=== PATIENT | female | born 1995 | race Caucasian/White ===

== ENCOUNTER 2019-12-14 04:53 | Inpatient (IN) | payer BC, MEDICAID, OTHER ==
[~2019-12-14 04:53] MED LIST: Oxytocin/Lactated Ringers 10 UNIT/1,000 ML BAG IV SCH; Sodium Chloride 0.9% 10 ML Syringe FLUSH PRN
[2019-12-14] MEDS ORDERED: Citric Acid/Sodium Citrate Solution 30 ML Cup PO ONE (05:00)
[2019-12-14] MEDS ORDERED: Metoclopramide 10 MG/2 ML SDV IVPUSH ONE (05:00)
[2019-12-14] MEDS: Lactated Ringers 1,000 ML IV SCH ×2 (05:20→06:01)
[2019-12-14] MEDS ORDERED: Ondansetron 4 MG/2 ML SDV ONE (05:57)
[2019-12-14] MEDS ORDERED: Oxytocin 10 Units/1 ML SDV ONE (05:57)
[2019-12-14] MEDS ORDERED: Ketorolac 30 MG/ML SDV ONE (05:57)
[2019-12-14] MEDS ORDERED: Lactated Ringers 2,000 ML ONE (05:57)
[2019-12-14] MEDS ORDERED: ceFAZolin 1 GM Vial ONE (05:57)
[2019-12-14] MEDS ORDERED: CEFAZOLIN IV ONE (06:00)
[2019-12-14] MEDS ORDERED: Metoclopramide 10 MG/2 ML SDV ONE (06:06)
[2019-12-14] MEDS ORDERED: Citric Acid/Sodium Citrate Solution 30 ML Cup ONE (06:06)
[2019-12-14] MEDS ORDERED: Bupivacaine 0.5% 30 ML SDV ONE (06:09)
[2019-12-14] MEDS ORDERED: fentaNYL 100 MCG/2 ML SDV IVPUSH PRN (06:12)
[2019-12-14] MEDS ORDERED: HYDROmorphone 0.5 MG/0.5 ML Syringe IVPUSH PRN (06:12)
[2019-12-14] MEDS ORDERED: Ondansetron 4 MG/2 ML SDV IVPUSH PRN (06:12)
--- NOTE | 2019-12-14 06:13 | PCM.PREANE ---
Preanesthetic Assessment - Procedure Proposed Procedure: repeat csection - Anesthesia/Transfusion/Family Hx Anesthesia History: Prior Anesthesia Without Reaction Family History of Anesthesia Reaction: No Transfusion History: No Prior Transfusion(s) - Review of Systems General: No Symptoms Pulmonary: No Symptoms Cardiovascular: No Symptoms Gastrointestinal: No Symptoms Neurological: No Symptoms Other: Reports: Depression - Physical Assessment NPO Status Date: 12/13/19 NPO Status Time: 22:00 Vital Signs: Last Vital Signs Temp 98.0 F 12/14/19 01:06 Pulse 83 12/14/19 01:06 Resp 15 12/14/19 01:06 BP 130/86 12/14/19 01:06 Pulse Ox 99 12/14/19 01:06 Height: 5 ft 10 in Weight: 81.647 kg ASA Class: 2 Mental Status: Alert & Oriented x3 Airway Class: Mallampati = 1 Dentition: Reports: Normal Dentition Thyro-Mental Finger Breadths: 3 Mouth Opening Finger Breadths: 3 ROM/Head Extension: Full Lungs: Clear to Auscultation, Normal Respiratory Effort Cardiovascular: Regular Rate, Regular Rhythm - Lab Values: Laboratory Last Values WBC 8.45 K/mm3 (3.98-10.04) 12/14/19 05:15 RBC 4.21 M/mm3 (3.98-5.22) 12/14/19 05:15 Hgb 12.6 gm/dl (11.2-15.7) 12/14/19 05:15 Hct 39.4 % (34.1-44.9) 12/14/19 05:15 MCV 93.6 fl (79.4-94.8) 12/14/19 05:15 MCH 29.9 pg (25.6-32.2) 12/14/19 05:15 MCHC 32.0 g/dl (32.2-35.5) L 12/14/19 05:15 RDW Std Deviation 44.8 fL (36.4-46.3) 12/14/19 05:15 Plt Count 165 K/mm3 (182-369) L 12/14/19 05:15 MPV 12.4 fl (9.4-12.3) H 12/14/19 05:15 Neut % (Auto) 62.2 % (34.0-71.1) 12/14/19 05:15 Lymph % (Auto) 27.7 % (19.3-51.7) 12/14/19 05:15 [place] % (Auto) 8.0 % (4.7-12.5) 12/14/19 05:15 Eos % (Auto) 1.8 (0.7-5.8) 12/14/19 05:15 Baso % (Auto) 0.2 % (0.1-1.2) 12/14/19 05:15 Neut # (Auto) 5.25 K/mm3 (1.56-6.13) 12/14/19 05:15 Lymph # (Auto) 2.34 K/mm3 (1.18-3.74) 12/14/19 05:15 [place] # (Auto) 0.68 K/mm3 (0.24-0.36) H 12/14/19 05:15 Eos # (Auto) 0.15 K/mm3 (0.04-0.36) 12/14/19 05:15 Baso # (Auto) 0.02 K/mm3 (0.01-0.08) 12/14/19 05:15 - Allergies Allergies/Adverse Reactions: Allergies Allergy/AdvReac Type Severity Reaction Status Date / Time No Known Allergies Allergy Verified 12/14/19 01:05 - Blood Blood Available: No - Acknowledgements Anesthesia Type Planned: Spinal Pt an Appropriate Candidate for the Planned Anesthesia: Yes Alternatives and Risks of Anesthesia Discussed w Pt/Guardian: Yes Pt/Guardian Understands and Agrees with Anesthesia Plan: Yes PreAnesthesia Questionnaire - Past Health History Medical/Surgical History: Denies Medical/Surgical History HEENT History: Reports: None Cardiovascular History: Reports: None Respiratory History: Reports: None Gastrointestinal History: Reports: None Genitourinary History: Reports: Pyelonephritis [employer] History: Reports: , Spontaneous : 2 Para: 1 Other OB/BYN History: SAB x 3, C/S in 2016 Musculoskeletal History: Reports: None Neurological History: Reports: Headaches, Chronic (resolved) Psychiatric History: Reports: ADHD, Anxiety, Depression Endocrine/Metabolic History: Reports: None Hematologic History: Reports: None Immunologic History: Reports: None Oncologic (Cancer) History: Reports: None Dermatologic History: Reports: None - Infectious Disease History Infectious Disease History: Reports: MRSA Other Infectious Disease History: MRSA cleared 05/15/[address] Lopez at [facility]- see scanned prenatals - Past Surgical History HEENT Surgical History: Reports: Adenoidectomy, Tonsillectomy Female Surgical History: Reports: Section Other Female Surgeries/Procedures: C/S in 2016 - SUBSTANCE USE Tobacco Use Status *Q: Never Tobacco User Tobacco Use Within Last Twelve Months: No Second Hand Smoke Exposure: No Days Per Week of Alcohol Use: 0 Recreational Drug Use History: No - HOME MEDS Home Medications: Home Meds Pnv No.95/Ferrous Fum/Folic AC [ Tablet] 1 tab PO DAILY 12/13/19 [History] - CURRENT (IN HOUSE) MEDS Current Meds: Current Medications Oxytocin/Lactated Ringer's (Pitocin In Lr 10 Units/1,000 Ml) 10 unit in 1,000 mls @ 100 mls/hr IV ASDIRECTED [facility]; Protocol Lactated Ringer's (Ringers, Lactated) 1,000 mls @ 125 mls/hr IV ASDIRECTED [facility] Last Admin: 12/14/19 06:01 Dose: 900 mls/hr Documented by: Sodium Chloride (Saline Flush) 10 ml FLUSH ASDIRECTED PRN PRN Reason: Keep Vein Open Discontinued Medications Cefazolin Sodium (Ancef) Confirm Administered Dose 2 gm .ROUTE .STK-MED ONE Stop: 12/14/19 05:58 Citric Acid/Sodium Citrate (Bicitra Solution) 30 ml PO ONETIME ONE Stop: 12/14/19 05:01 Cefazolin Sodium/Dextrose 2 gm (/ Premix) 0 mls @ 100 mls/hr IV ONETIME ONE Stop: 12/14/19 06:01 Lactated Ringer's (Ringers, Lactated) Confirm Administered Dose 2,000 mls @ as directed .ROUTE .STK-MED ONE Stop: 12/14/19 05:58 Ketorolac Tromethamine (Toradol) Confirm Administered Dose 30 mg .ROUTE .STK-MED ONE Stop: 12/14/19 05:58 Metoclopramide HCl (Reglan) 10 mg IVPUSH ONETIME ONE Stop: 12/14/19 05:01 Ondansetron HCl (Zofran) Confirm Administered Dose 4 mg .ROUTE .STK-MED ONE Stop: 12/14/19 05:58 Oxytocin (Pitocin) Confirm Administered Dose 10 unit .ROUTE .[facility]-MED ONE Stop: 12/14/19 05:58
[2019-12-14] MEDS ORDERED: Morphine PF 10 MG/10 ML SDV ONE (06:17)
[2019-12-14] MEDS ORDERED: ePHEDrine 50 MG/ML SDV ONE (07:23)
--- NOTE | 2019-12-14 07:37 | PCM.POSTAN ---
POST ANESTHESIA ASSESSMENT - MENTAL STATUS Mental Status: Alert, Oriented - VITAL SIGNS Vital Signs: Last Vital Signs Temp 98.0 F 12/14/19 01:06 Pulse 83 12/14/19 01:06 Resp 15 12/14/19 01:06 BP 130/86 12/14/19 01:06 Pulse Ox 99 12/14/19 01:06 0730 96/62 95 16 97.2 98% - RESPIRATORY Respiratory Status: Respiratory Rate WNL, Airway Patent, O2 Saturation Stable, Supplemental Oxygen - CARDIOVASCULAR CV Status: Pulse Rate WNL, Blood Pressure Stable - GASTROINTESTINAL GI Status: No Symptoms - PAIN Pain Score: 0 - POST OP HYDRATION Hydration Status: Adequate & Stable
--- NOTE | 2019-12-14 07:57 | PCM.OPNOTE ---
- General Post-Op/Procedure Note Date of Surgery/Procedure: 12/14/19 Operative Procedure(s): repeat Findings: viable female at 0704, 9/9 apgars, 7#13oz, vertex. Pre Op Diagnosis: prior , desires repeat Post-Op Diagnosis: Same Anesthesia Technique: Spinal Primary Surgeon: Shirley Lopez Anesthesia Provider: Talat Amaya Ccna: Augusto Mast Ccna: Anamika Gatica Reason Ccna Was Necessary: retraction, repeat, patient safety Fluid Replacement, Intraop: 3,100 Output, Urine Amount: 400 EBL in mLs: 600 Complications: None Condition: Good Free Text/Narrative:: The patient was taken to the operating room where epidural anesthesia was dosed to surgical levels without difficulty. The patient was prepped and draped in the usual sterile fashion in the dorsal supine position with a leftward tilt. A Pfannenstiel skin incision was made with the scalpel and carried through to the underlying layer of fascia. The fascia was incised in the midline and extended laterally using Vasques scissors. Good clamps were used to elevate the superior aspect of the fascial incision, which was elevated, and the underlying rectus muscles were dissected off bluntly and using Vasques scissors. Attention was then turned to the inferior aspect of the fascial incision, which in similar fashion was grasped with Good clamps, elevated, and the underlying rectus muscles were dissected off bluntly and using the vasques. The rectus muscles were dissected in the midline. The peritoneum was entered bluntly; this incision was extended superiorly and inferiorly with good visualization of the bladder. The bladder blade was inserted. The vesicouterine peritoneum was identified and entered sharply using Metzenbaum scissors. This incision was extended laterally and the bladder flap was created digitally. The bladder blade was reinserted. The lower uterine segment was incised in a transverse fashion using the scalpel and with digital traction. Clear fluid was noted. The was subsequently delivered by flexing the head to the incision, vacuum assistance required. . Body and shoulders followed without difficulty. The cord was clamped and cut. The was subsequently handed to the awaiting lens polisher whose presence had been requested.. The placenta was delivered spontaneously intact with a three-vessel cord noted. The uterus was exteriorized and cleared of all clots and debris. The uterine incision was repaired in 2 layers using 0 monocryl. Hemostasis was visualized. Hemostasis was visualized bilaterally. The uterus was returned to the abdomen. The uterine incision was reexamined and it was noted to be hemostatic. The pelvis was copiously irrigated. The fascia was closed with 1 PDS suture, and the skin was closed with 3-0 monocryl. Sponge, lap, and instrument counts were correct x2. The patient was stable at the completion of the procedure and was subsequently transferred to the recovery room in stable condition.Intake & Output 12/13/19 12/14/19 12/14/19 22:59 06:59 14:59 Intake Total 1000 Output Total 400 Balance 1000 -400
[2019-12-14] MEDS ORDERED: ePHEDrine 50 MG/ML SDV IVPUSH PRN (09:01)
[2019-12-14] MEDS ORDERED: Naloxone 0.4 MG/ML SDV IVPUSH PRN (09:01)
[2019-12-14] MEDS ORDERED: Acetaminophen/oxyCODONE 325-5 MG Tab PO PRN (09:01)
[2019-12-14] MEDS ORDERED: Dextrose 5%-Lactated Ringers 1,000 ML IV SCH (09:01)
[2019-12-14] MEDS ORDERED: diphenhydrAMINE 50 MG/ML SDV IVPUSH PRN (09:01)
[2019-12-14] MEDS: Ondansetron 4 MG/2 ML SDV IVPUSH PRN ×2 (10:09→19:35)
[2019-12-14] MEDS: Ketorolac 30 MG/ML SDV IVPUSH SCH ×2 (13:23→20:22)
[2019-12-14] MEDS ORDERED: Dextrose 5%-Lactated Ringers 1,000 ML IV ONE (14:00)
[2019-12-14] MEDS ORDERED: Lactated Ringers 1,000 ML IV SCH (17:30)
[2019-12-15] MEDS ORDERED: Ketorolac 30 MG/ML SDV IVPUSH ONE (05:00)
--- NOTE | 2019-12-15 07:43 | PCM48HPAN ---
Post Anesthesia Note - EVALUATION WITHIN 48HRS OF ANESTHETIC Vital Signs in Normal Range: Yes Patient Participated in Evaluation: Yes Respiratory Function Stable: Yes Airway Patent: Yes Cardiovascular Function Stable: Yes Hydration Status Stable: Yes Pain Control Satisfactory: Yes Nausea and Vomiting Control Satisfactory: Yes Mental Status Recovered: Yes Vital Signs: Last Vital Signs Temp 36.6 C 12/15/19 03:21 Pulse 79 12/15/19 03:21 Resp 16 12/15/19 03:21 BP 117/57 L 12/15/19 03:21 Pulse Ox 96 12/15/19 03:21
--- NOTE | 2019-12-15 08:38 | PCM.PNPP ---
- General Info Date of Service: 12/15/19 Functional Status: Reports: Pain Controlled - Review of Systems General: Reports: No Symptoms HEENT: Reports: No Symptoms Pulmonary: Reports: No Symptoms Cardiovascular: Reports: No Symptoms Gastrointestinal: Reports: No Symptoms Genitourinary: Reports: No Symptoms Musculoskeletal: Reports: No Symptoms Skin: Reports: No Symptoms Neurological: Reports: No Symptoms Psychiatric: Reports: No Symptoms - General Info Date of Service: 12/15/19 - Patient Data Vital Signs - Most Recent: Last Vital Signs Temp 36.6 C 12/15/19 03:21 Pulse 79 12/15/19 03:21 Resp 16 12/15/19 03:21 BP 117/57 L 12/15/19 03:21 Pulse Ox 96 12/15/19 03:21 Weight - Most Recent: 81.647 kg I&O - Last 24 Hours: Intake & Output 12/14/19 12/15/19 12/15/19 22:59 06:59 14:59 Intake Total 30 1000 Output Total 215 800 Balance -185 200 Lab Results - Last 24 Hours: Laboratory Results - last 24 hr 12/14/19 12/14/19 12/15/19 Range/Units 05:15 05:15 06:10 WBC 6.38 (3.98-10.04) K/mm3 RBC 3.44 L (3.98-5.22) M/mm3 Hgb 10.3 L D (11.2-15.7) gm/dl Hct 32.8 L (34.1-44.9) % MCV 95.3 H (79.4-94.8) fl MCH 29.9 (25.6-32.2) pg MCHC 31.4 L (32.2-35.5) g/dl RDW Std Deviation 44.2 (36.4-46.3) fL Plt Count 113 L (182-369) K/mm3 MPV 12.1 (9.4-12.3) fl Neut % (Auto) 70.6 (34.0-71.1) % Lymph % (Auto) 20.2 (19.3-51.7) % [place] % (Auto) 7.1 (4.7-12.5) % Eos % (Auto) 1.6 (0.7-5.8) Baso % (Auto) 0.3 (0.1-1.2) % Neut # (Auto) 4.51 (1.56-6.13) K/mm3 Lymph # (Auto) 1.29 (1.18-3.74) K/mm3 [place] # (Auto) 0.45 H (0.24-0.36) K/mm3 Eos # (Auto) 0.10 (0.04-0.36) K/mm3 Baso # (Auto) 0.02 (0.01-0.08) K/mm3 RPR Non-reactive (NONREACTIVE) Blood Type A POSITIVE Gel Antibody Screen Negative Med Orders - Current: Current Medications Diphenhydramine HCl (Benadryl) 25 mg IVPUSH Q6H PRN PRN Reason: Itching or Nausea Ephedrine Sulfate (Ephedrine Sulfate) 5 mg IVPUSH SEECOMMENT PRN PRN Reason: Other Lactated Ringer's (Ringers, Lactated) 1,000 mls @ 125 mls/hr IV ASDIRECTED [facility] Last Admin: 12/14/19 18:47 Dose: 125 mls/hr Documented by: Ibuprofen (Motrin) 600 mg PO Q6H PRN PRN Reason: mild pain or fever Naloxone HCl (Narcan) 0.1 mg IVPUSH SEECOMMENT PRN PRN Reason: Respiratory Depression Ondansetron HCl (Zofran) 4 mg IVPUSH Q8H PRN PRN Reason: Nausea Last Admin: 12/14/19 19:35 Dose: 4 mg Documented by: Oxycodone/Acetaminophen (Percocet 325-5 Mg) 1 tab PO Q4H PRN PRN Reason: Pain (moderate 4-6) Oxycodone/Acetaminophen (Percocet 325-5 Mg) 2 tab PO Q4H PRN PRN Reason: Pain (severe 7-10) Discontinued Medications Bupivacaine HCl (Marcaine 0.5%) Confirm Administered Dose 30 ml .ROUTE .STK-MED ONE Stop: 12/14/19 06:10 Last Admin: 12/14/19 06:59 Dose: 20 ml Documented by: Cefazolin Sodium (Ancef) Confirm Administered Dose 2 gm .ROUTE .STK-MED ONE Stop: 12/14/19 05:58 Citric Acid/Sodium Citrate (Bicitra Solution) 30 ml PO ONETIME ONE Stop: 12/14/19 05:01 Last Admin: 12/14/19 06:17 Dose: 30 ml Documented by: Citric Acid/Sodium Citrate (Bicitra Solution) Confirm Administered Dose 30 ml .ROUTE .STK-MED ONE Stop: 12/14/19 06:07 Last Admin: 12/14/19 06:18 Dose: Not Given Documented by: Ephedrine Sulfate (Ephedrine Sulfate) Confirm Administered Dose 50 mg .ROUTE .STK-MED ONE Stop: 12/14/19 07:24 Fentanyl (Sublimaze) 50 mcg IVPUSH Q5M PRN PRN Reason: Pain Hydromorphone HCl (Dilaudid) 0.5 mg IVPUSH Q10M PRN PRN Reason: Pain (severe 7-10) Cefazolin Sodium/Dextrose 2 gm (/ Premix) 0 mls @ 100 mls/hr IV ONETIME ONE Stop: 12/14/19 06:01 Oxytocin/Lactated Ringer's (Pitocin In Lr 10 Units/1,000 Ml) 10 unit in 1,000 mls @ 100 mls/hr IV ASDIRECTED [facility]; Protocol Lactated Ringer's (Ringers, Lactated) 1,000 mls @ 125 mls/hr IV ASDIRECTED [facility] Last Admin: 12/14/19 06:01 Dose: 900 mls/hr Documented by: Lactated Ringer's (Ringers, Lactated) Confirm Administered Dose 2,000 mls @ as directed .ROUTE .STK-MED ONE Stop: 12/14/19 05:58 Dextrose/Lactated Ringer's (Dextrose 5%-Lactated Ringers) 1,000 mls @ 125 mls/hr IV ASDIRECTED [facility] Stop: 12/14/19 17:00 Last Admin: 12/14/19 09:30 Dose: 125 mls/hr Documented by: Dextrose/Lactated Ringer's (Dextrose 5%-Lactated Ringers) 1,000 mls @ 999 mls/hr IV ONETIME ONE Stop: 12/14/19 15:00 Last Admin: 12/14/19 13:56 Dose: 999 mls/hr Documented by: Ketorolac Tromethamine (Toradol) Confirm Administered Dose 30 mg .ROUTE .STK-MED ONE Stop: 12/14/19 05:58 Ketorolac Tromethamine (Toradol) 30 mg IVPUSH Q6H [facility] Stop: 12/15/19 00:31 Last Admin: 12/14/19 20:22 Dose: 30 mg Documented by: Ketorolac Tromethamine (Toradol) 30 mg IVPUSH ONETIME ONE Stop: 12/15/19 05:01 Last Admin: 12/15/19 04:52 Dose: 30 mg Documented by: Metoclopramide HCl (Reglan) 10 mg IVPUSH ONETIME ONE Stop: 12/14/19 05:01 Last Admin: 12/14/19 06:17 Dose: 10 mg Documented by: Metoclopramide HCl (Reglan) Confirm Administered Dose 10 mg .ROUTE .STK-MED ONE Stop: 12/14/19 06:07 Last Admin: 12/14/19 06:18 Dose: Not Given Documented by: Miscellaneous Medication (Phenylephrine 1 Mg/10 Ml-Ns) Confirm Administered Dose 1 mg .ROUTE .STK-MED ONE Stop: 12/14/19 07:24 Morphine Sulfate (Duramorph Pf) Confirm Administered Dose 10 mg .ROUTE .STK-MED ONE Stop: 12/14/19 06:18 Ondansetron HCl (Zofran) Confirm Administered Dose 4 mg .ROUTE .STK-MED ONE Stop: 12/14/19 05:58 Ondansetron HCl (Zofran) 4 mg IVPUSH ONETIME PRN PRN Reason: Nausea/Vomiting Oxytocin (Pitocin) Confirm Administered Dose 10 unit .ROUTE .STK-MED ONE Stop: 12/14/19 05:58 Sodium Chloride (Saline Flush) 10 ml FLUSH ASDIRECTED PRN PRN Reason: Keep Vein Open - Infant Interaction Support Person: - Recovery Exam Fundal Tone: Firm Fundal Level: 1 Fingerbreadths Below Umbilicus Fundal Placement: Midline Lochia Amount: Small Lochia Color: Rubra/Red Perineum Description: Intact, Minimal Bruising/Swelling Episiotomy/Laceration: None Bladder Status: Indwelling Catheter in Place Urinary Elimination: Indwelling Catheter - Exam General: Alert, Oriented HEENT: Pupils Equal Neck: Supple Lungs: Clear to Auscultation, Normal Respiratory Effort Cardiovascular: Regular Rate, Regular Rhythm GI/Abdominal Exam: Normal Bowel Sounds, Soft, Non-Tender, No Organomegaly, No Distention, No Abnormal Bruit, No Mass, Pelvis Stable Extremities: Normal Inspection, Normal Range of Motion, Non-Tender, No Pedal Edema, Normal Capillary Refill Neurological: No New Focal Deficit - Problem List Review Problem List Initiated/Reviewed/Updated: Yes - My Orders Last 24 Hours: My Active Orders 12/14/19 09:01 Acetaminophen/oxyCODONE [Percocet 325-5 MG] 1 tab PO Q4H PRN Acetaminophen/oxyCODONE [Percocet 325-5 MG] 2 tab PO Q4H PRN Naloxone [Narcan] 0.1 mg IVPUSH SEECOMMENT PRN diphenhydrAMINE [Benadryl] 25 mg IVPUSH Q6H PRN ePHEDrine [ePHEDrine sulfate] 5 mg IVPUSH SEECOMMENT PRN 12/14/19 09:01 Communication Order [RC] PER UNIT ROUTINE Communication Order [RC] PER UNIT ROUTINE Communication Order [RC] PER UNIT ROUTINE Notify Provider Intake and Out [RC] ASDIRECTED Vital Signs [RC] Q4H Assess Lochia [WOMSER] Per Unit Routine Assess Uterine Involution [WOMSER] Per Unit Routine Medication Administration Instruction [OM.PC] Routine 12/14/19 09:10 Ondansetron [Zofran] 4 mg IVPUSH Q8H PRN 12/14/19 Lunch Regular Diet [DIET] 12/14/19 17:30 Lactated Ringers [Ringers, Lactated] 1,000 ml IV ASDIRECTED 12/15/19 06:30 Ibuprofen [Motrin] 600 mg PO Q6H PRN 12/15/19 07:57 Urinary Catheter Removal [RC] Per Unit Routine - Assessment Assessment:: POD1 Doing great. No issues. Desires discharge home.
[2019-12-15] MEDS: Acetaminophen/oxyCODONE 325-5 MG Tab PO PRN ×2 (10:45→20:07)
[2019-12-15] MEDS: Ibuprofen 600 MG Tab PO PRN (13:39)
[2019-12-15] MEDS: Ketorolac 30 MG/ML SDV IVPUSH SCH (18:37)
[2019-12-16] MEDS: Ibuprofen 600 MG Tab PO PRN (05:21)
--- NOTE | 2019-12-16 09:58 | PCM.SN.2 ---
- Free Text/Narrative Note: Post Operative Progress Note POD #2 Subjective: Doing well overall. Ambulating with some difficulty with burning at the incision when she is up and walking for longer periods of time. Reports that it is getting better since yesterday and the day of surgery. Lochia minimal. Voiding without difficulty. Passing flatus and has not had a bowel movement at this time. Tolerating regular diet without nausea or vomiting. Pain controlled with oral medications. Breast and bottlefeeding with minimal difficulty. Objective: Vitals: Vital Signs - 24 hr 12/15/19 12/15/19 12/16/19 15:00 20:06 02:50 Temperature 36.1 C 36.9 C Temperature [ 36.5 C Temporal] Pulse, 81 59 L Peripheral Pulse, 71 Peripheral [ Pulse Oximetry] Respiratory 14 16 16 Rate Blood Pressure 126/73 115/70 Blood Pressure 123/81 [Left Upper Arm ] O2 Sat by Pulse 97 100 97 Oximetry Physical Exam General: Alert and oriented, no acute distress Lungs: Clear to auscultation bilaterally Heart: Regular rate and rhythm Abdomen: Soft, minimal appropriate tenderness, non-distended, fundus midline, nontender and at the umbilicus Incision: Clean, dry and intact, no erythema, bleeding or drainage with skin glue in place Extremities: No edema ASSESSMENT: 24-year-old female -0-3-2 s/p repeat section POD #2 for history of section, complicated by history of section PLAN: Doing well Breast and bottlefeeding with minimal difficulty. Assist as needed Incision healing well. Continue to keep clean and dry. Lochia minimal. Continue to monitor for appropriate lochia. Continue routine post-operative care Discharge home today Augusto Mast MD 9:58 AM 12/16/2019
--- NOTE | 2019-12-16 10:06 | PCM.DCSUM1 ---
Discharge Summary - Hospital Course Free Text/Narrative:: - General Post-Op/Procedure Note Date of Surgery/Procedure: 12/14/19 Operative Procedure(s): repeat Findings: viable female at 0704, 9/9 apgars, 7#13oz, vertex. Pre Op Diagnosis: prior , desires repeat Post-Op Diagnosis: Same Anesthesia Technique: Spinal Primary Surgeon: Shirley Lopez Anesthesia Provider: Talat [employer] Security Consultant: Augusto Mast [employer] Security Consultant: Anamika Gatica [employer] Security Consultant Was Necessary: retraction, repeat, patient safety Fluid Replacement, Intraop: 3,100 Output, Urine Amount: 400 EBL in mLs: 600 Complications: None Condition: Good Free Text/Narrative:: The patient was taken to the operating room where epidural anesthesia was dosed to surgical levels without difficulty. The patient was prepped and draped in the usual sterile fashion in the dorsal supine position with a leftward tilt. A Pfannenstiel skin incision was made with the scalpel and carried through to the underlying layer of fascia. The fascia was incised in the midline and extended laterally using Vasques scissors. Good clamps were used to elevate the superior aspect of the fascial incision, which was elevated, and the underlying rectus muscles were dissected off bluntly and using Vasques scissors. Attention was then turned to the inferior aspect of the fascial incision, which in similar fashion was grasped with Good clamps, elevated, and the underlying rectus muscles were dissected off bluntly and using the vasques. The rectus muscles were dissected in the midline. The peritoneum was entered bluntly; this incision was extended superiorly and inferiorly with good visualization of the bladder. The bladder blade was inserted. The vesicouterine peritoneum was identified and entered sharply using Metzenbaum scissors. This incision was extended laterally and the bladder flap was created digitally. The bladder blade was reinserted. The lower uterine segment was incised in a transverse fashion using the scalpel and with digital traction. Clear fluid was noted. The infant was subsequently delivered by flexing the head to the incision, vacuum assistance required. . Body and shoulders f HPI Initial Comments: - General Post-Op/Procedure Note Date of Surgery/Procedure: 12/14/19 Operative Procedure(s): repeat Findings: viable female at 0704, 9/9 apgars, 7#13oz, vertex. Pre Op Diagnosis: prior , desires repeat Post-Op Diagnosis: Same Anesthesia Technique: Spinal Primary Surgeon: Shirley Lopez Anesthesia Provider: [employer] Security Consultant: Augusto Mast [employer] Security Consultant: Anamika Gatica [employer] Security Consultant Was Necessary: retraction, repeat, patient safety Fluid Replacement, Intraop: 3,100 Output, Urine Amount: 400 EBL in mLs: 600 Complications: None Condition: Good Free Text/Narrative:: The patient was taken to the operating room where epidural anesthesia was dosed to surgical levels without difficulty. The patient was prepped and draped in the usual sterile fashion in the dorsal supine position with a leftward tilt. A Pfannenstiel skin incision was made with the scalpel and carried through to the underlying layer of fascia. The fascia was incised in the midline and extended laterally using Vasques scissors. Good clamps were used to elevate the superior aspect of the fascial incision, which was elevated, and the underlying rectus muscles were dissected off bluntly and using Vasques scissors. Attention was then turned to the inferior aspect of the fascial incision, which in similar fashion was grasped with Good clamps, elevated, and the underlying rectus muscles were dissected off bluntly and using the vasques. The rectus muscles were dissected in the midline. The peritoneum was entered bluntly; this incision was extended superiorly and inferiorly with good visualization of the bladder. The bladder blade was inserted. The vesicouterine peritoneum was identified and entered sharply using Metzenbaum scissors. This incision was extended laterally and the bladder flap was created digitally. The bladder blade was reinserted. The lower uterine segment was incised in a transverse fashion using the scalpel and with digital traction. Clear fluid was noted. The was subsequently delivered by flexing the head to the incision, vacuum assistance required. . Body and shoulders f Brief History: - General Post-Op/Procedure Note. Date of Surgery/Procedure: 12/14/19. Operative Procedure(s): repeat . Findings: viable female at 0704, 9/9 apgars, 7#13oz, vertex. Pre Op Diagnosis: prior , desires repeat. Post-Op Diagnosis: Same. Anesthesia Technique: Spinal. Primary Surgeon: Shirley Lopez. Anesthesia Provider: Talat Amaya. Systems Security Consultant: Augusto Mast [employer] Security Consultant: Anamika Gatica. Reason Systems Security Consultant Was Necessary: retraction, repeat, patient safety. Fluid Replacement, Intraop: 3 ,100. Output, Urine Amount: 400. EBL in mLs: 600. Complications: None. Condition: Good. Free Text/Narrative:: The patient was taken to the operating room where epidural anesthesia was dosed to surgical levels without difficulty. The patient was prepped and draped in the usual sterile fashion in the dorsal supine position with a leftward tilt. A Pfannenstiel skin incision was made with the scalpel and carried through to the underlying layer of fascia. The fascia was incised in the midline and extended laterally using Vasques scissors. Good clamps were used to elevate the superior aspect of the fascial incision, which was elevated, and the underlying rectus muscles were dissected off bluntly and using Vasques scissors. Attention was then turned to the inferior aspect of the fascial incision, which in similar fashion was grasped with Good clamps, elevated, and the underlying rectus muscles were dissected off bluntly and using the vasques. The rectus muscles were dissected in the midline. The peritoneum was entered bluntly; this incision was extended superiorly and inferiorly with good visualization of the bladder. The bladder blade was inserted. The vesicouterine peritoneum was identified and entered sharply using Metzenbaum scissors. This incision was extended laterally and the bladder flap was created digitally. The bladder blade was reinserted. The lower uterine segment was incised in a transverse fashion using the scalpel and with digital traction. Clear fluid was noted. The was subsequently delivered by flexing the head to the incision, vacuum assistance required. . Body and shoulders f Diagnosis: Stroke: No - Discharge Data Discharge Date: 12/16/19 Discharge Disposition: Home, Self-Care 01 Condition: Good - Referral to Home Health Primary Care Physician: Shirley Lopez MD - Patient Summary/Data Operative Procedure(s) Performed: repeat Complications: None Consults: None Hospital Course: Anju Hagen was admitted for scheduled repeat section. She was taken back to the OR and given spinal injection for anesthesia. She was given Ancef 2 g IV for antibiotic prophylaxis. She was prepped and draped in the normal fashion. On 12/14/2019 she had a vacuum-assisted delivery of a live female infant at 07:04. Apgars of 9 and 9. Weight of 3540 g (7 pounds 12.9 ounces). She was closed in a normal fashion. There were no complications with the procedure. Please see the operative report for full details. Her post operative course was uneventful. Her pain was well controlled and she had minimal lochia. She was ambulating, tolerating a regular diet and voiding normally. She was passing flatus and has not had a bowel movement. She was breast and bottle feeding without difficulty. She was afebrile and her hematocrit was 32.8 on POD #1. She desired to be discharged home on the morning of POD #2. Her blood type is A+. - Patient Instructions Diet: Regular Diet as Tolerated Activity: Apply Ice, As Tolerated, No Lifting Over 20 Pounds Activity, Other: Nothing in the vagina for 6 weeks Driving: Do Not Drive (While taking narcotic medications or having significant pain) Showering/Bathing: May Shower Wound/Incision Care: Keep Operative Site/Wound Site Clean and Dry Notify Provider of: Fever, Increased Pain, Swelling and Redness, Drainage, Nausea and/or Vomiting Other/Special Instructions: Please contact your physician's office if you note any bleeding or pus coming from the abdominal incision. Please contact your physician's office if you have heavy vaginal bleeding enough to soak a pad in less than an hour for several hours. Monitor for any signs of an infection in the breasts with severe pain or redness of the breast. - Discharge Plan *PRESCRIPTION DRUG MONITORING PROGRAM REVIEWED*: No *COPY OF PRESCRIPTION DRUG MONITORING REPORT IN PATIENT TERESA: No Home Medications: Home Meds Pnv No.95/Ferrous Fum/Folic AC [ Tablet] 1 tab PO DAILY 12/13/19 [History] Acetaminophen/oxyCODONE [Percocet 325-5 MG] 2 tab PO Q4H PRN tablet 12/16/19 [Rx] Ibuprofen [Motrin] 600 mg PO Q6H PRN tablet 12/16/19 [Rx] Patient Handouts: Care After Delivery Referrals: Shirley Lopez MD [Primary Care Provider] - (Follow-up in 2 weeks for routine postoperative appointment or earlier as needed.) - Discharge Summary/Plan Comment DC Time >30 min.: No - Patient Data Vitals - Most Recent: Last Vital Signs Temp 36.9 C 12/16/19 02:50 Pulse 59 L 12/16/19 02:50 Resp 16 12/16/19 02:50 BP 115/70 12/16/19 02:50 Pulse Ox 97 12/16/19 02:50 Weight - Most Recent: 81.647 kg I&O - Last 24 hours: Intake & Output 12/15/19 12/16/19 12/16/19 22:59 06:59 14:59 Intake Total 500 Balance 500 Med Orders - Current: Current Medications Diphenhydramine HCl (Benadryl) 25 mg IVPUSH Q6H PRN PRN Reason: Itching or Nausea Ephedrine Sulfate (Ephedrine Sulfate) 5 mg IVPUSH SEECOMMENT PRN PRN Reason: Other Lactated Ringer's (Ringers, Lactated) 1,000 mls @ 125 mls/hr IV ASDIRECTED TARIK Last Admin: 12/14/19 18:47 Dose: 125 mls/hr Documented by: Ibuprofen (Motrin) 600 mg PO Q6H PRN PRN Reason: mild pain or fever Last Admin: 12/16/19 05:21 Dose: 600 mg Documented by: Naloxone HCl (Narcan) 0.1 mg IVPUSH SEECOMMENT PRN PRN Reason: Respiratory Depression Ondansetron HCl (Zofran) 4 mg IVPUSH Q8H PRN PRN Reason: Nausea Last Admin: 12/14/19 19:35 Dose: 4 mg Documented by: Oxycodone/Acetaminophen (Percocet 325-5 Mg) 1 tab PO Q4H PRN PRN Reason: Pain (moderate 4-6) Last Admin: 12/15/19 20:07 Dose: 1 tab Documented by: Oxycodone/Acetaminophen (Percocet 325-5 Mg) 2 tab PO Q4H PRN PRN Reason: Pain (severe 7-10) Discontinued Medications Bupivacaine HCl (Marcaine 0.5%) Confirm Administered Dose 30 ml .ROUTE .STK-MED ONE Stop: 12/14/19 06:10 Last Admin: 12/14/19 06:59 Dose: 20 ml Documented by: Cefazolin Sodium (Ancef) Confirm Administered Dose 2 gm .ROUTE .STK-MED ONE Stop: 12/14/19 05:58 Citric Acid/Sodium Citrate (Bicitra Solution) 30 ml PO ONETIME ONE Stop: 12/14/19 05:01 Last Admin: 12/14/19 06:17 Dose: 30 ml Documented by: Citric Acid/Sodium Citrate (Bicitra Solution) Confirm Administered Dose 30 ml .ROUTE .STK-MED ONE Stop: 12/14/19 06:07 Last Admin: 12/14/19 06:18 Dose: Not Given Documented by: Ephedrine Sulfate (Ephedrine Sulfate) Confirm Administered Dose 50 mg .ROUTE .STK-MED ONE Stop: 12/14/19 07:24 Fentanyl (Sublimaze) 50 mcg IVPUSH Q5M PRN PRN Reason: Pain Hydromorphone HCl (Dilaudid) 0.5 mg IVPUSH Q10M PRN PRN Reason: Pain (severe 7-10) Cefazolin Sodium/Dextrose 2 gm (/ Premix) 0 mls @ 100 mls/hr IV ONETIME ONE Stop: 12/14/19 06:01 Last Admin: 12/15/19 18:39 Dose: Not Given Documented by: Oxytocin/Lactated Ringer's (Pitocin In Lr 10 Units/1,000 Ml) 10 unit in 1,000 m ls @ 100 mls/hr IV ASDIRECTED [facility]; Protocol Lactated Ringer's (Ringers, Lactated) 1,000 mls @ 125 mls/hr IV ASDIRECTED [facility] Last Admin: 12/14/19 06:01 Dose: 900 mls/hr Documented by: Lactated Ringer's (Ringers, Lactated) Confirm Administered Dose 2,000 mls @ as directed .ROUTE .STK-MED ONE Stop: 12/14/19 05:58 Dextrose/Lactated Ringer's (Dextrose 5%-Lactated Ringers) 1,000 mls @ 125 mls/hr IV ASDIRECTED [facility] Stop: 12/14/19 17:00 Last Admin: 12/14/19 09:30 Dose: 125 mls/hr Documented by: Dextrose/Lactated Ringer's (Dextrose 5%-Lactated Ringers) 1,000 mls @ 999 mls/hr IV ONETIME ONE Stop: 12/14/19 15:00 Last Admin: 12/14/19 13:56 Dose: 999 mls/hr Documented by: Ketorolac Tromethamine (Toradol) Confirm Administered Dose 30 mg .ROUTE .STK-MED ONE Stop: 12/14/19 05:58 Ketorolac Tromethamine (Toradol) 30 mg IVPUSH Q6H TARIK Stop: 12/15/19 00:31 Last Admin: 12/15/19 18:37 Dose: Not Given Documented by: Ketorolac Tromethamine (Toradol) 30 mg IVPUSH ONETIME ONE Stop: 12/15/19 05:01 Last Admin: 12/15/19 04:52 Dose: 30 mg Documented by: Metoclopramide HCl (Reglan) 10 mg IVPUSH ONETIME ONE Stop: 12/14/19 05:01 Last Admin: 12/14/19 06:17 Dose: 10 mg Documented by: Metoclopramide HCl (Reglan) Confirm Administered Dose 10 mg .ROUTE .STK-MED ONE Stop: 12/14/19 06:07 Last Admin: 12/14/19 06:18 Dose: Not Given Documented by: Miscellaneous Medication (Phenylephrine 1 Mg/10 Ml-Ns) Confirm Administered Dose 1 mg .ROUTE .STK-MED ONE Stop: 12/14/19 07:24 Morphine Sulfate (Duramorph Pf) Confirm Administered Dose 10 mg .ROUTE .STK-MED ONE Stop: 12/14/19 06:18 Ondansetron HCl (Zofran) Confirm Administered Dose 4 mg .ROUTE .STK-MED ONE Stop: 12/14/19 05:58 Ondansetron HCl (Zofran) 4 mg IVPUSH ONETIME PRN PRN Reason: Nausea/Vomiting Oxytocin (Pitocin) Confirm Administered Dose 10 unit .ROUTE .STK-MED ONE Stop: 12/14/19 05:58 Sodium Chloride (Saline Flush) 10 ml FLUSH ASDIRECTED PRN PRN Reason: Keep Vein Open
[2019-12-16 14:03] VITALS: BP 114/83; PULSE 74
== END 2019-12-16 12:40 | disposition home or self-care (01) | DRG 540 ==
LOC: EEVIPCON 04:53 → JD.OB 04:53
PROVIDERS: ADMIT Obstetrics & Gynecology; ATTEND Obstetrics & Gynecology
PROC: 10D00Z1 Extraction of Products of Conception, Low, Open Approach (ICD-10-PCS; principal; 2019-12-14)
DX: O34.211 Maternal care for low transverse scar from previous cesarean delivery (principal); Z37.0 Single live birth; Z20.828 Contact with and (suspected) exposure to other viral communicable diseases; Z3A.39 39 weeks gestation of pregnancy
CPT/HCPCS: 01961; 36415; 59025; 85025; 86592; 86850; 86900; 86901; A9270-GY; J0690; J1885; J2270; J2370; J2405; J2590; J2765; J3490; J7120; J7121; U0002